=== PATIENT | female | born 1985 | race Caucasian/White ===

== ENCOUNTER 2017-10-12 23:30 | Emergency (ER) | payer SELFPAY ==
[2017-10-12 23:39] VITALS: BP 140/81; PULSE 74; TEMP 98.2; BMI 24.2
--- NOTE | 2017-10-13 00:38 | PDOC ---
History of Present Illness - General History Source: Patient Exam Limitations: No Limitations - History of Present Illness Initial Comments: 10/13/17 01:07 The patient is a 31 year old female with no significant PMH of who presents to the emergency department with intermittent itchiness, hives, and tightness of the throat for the past week. The patient denies any contact with new pets, new jewelry, changes in her environment, new foods, or new lotions. The patient denies any known allergies. Denies recent travel. The patient denies chest pain, shortness of breath, headache and dizziness. Denies fever, chills, nausea, vomit, diarrhea and constipation. Denies dysuria, frequency, urgency and hematuria. Allergies: NKA Past surgical history: None reported. Social history: No reported alcohol, drug, or cigarette use. <Nat Kent - Last Filed: 10/13/17 01:19> <Yanni Paredes - Last Filed: 10/13/17 02:58> - General Chief Complaint: Shortness of Breath Stated Complaint: S.O.B Time Seen by Provider: 10/13/17 00:37 Past History <Nat Kent - Last Filed: 10/13/17 01:19> - Past Medical History Asthma: No Cancer: No Cardiac Disorders: No Diabetes: No HTN: No Seizures: No Thyroid Disease: No - Suicide/Smoking/Psychosocial Hx Smoking History: Never smoked Have you smoked in the past 12 months: No Information on smoking cessation initiated: No Hx Alcohol Use: No Drug/Substance Use Hx: No Substance Use Type: None Hx Substance Use Treatment: No <Yanni Paredes - Last Filed: 10/13/17 02:58> - Past Medical History Allergies/Adverse Reactions: Allergies Allergy/AdvReac Type Severity Reaction Status Date / Time No Known Allergies Allergy Verified 01/17/14 11:21 Home Medications: Ambulatory Orders No Home Medications 0 dose .ROUTE UTDICT 01/17/14 Diphenhydramine [Benadryl -] 50 mg PO Q8H PRN #30 capsule 10/13/17 Epinephrine [Epipen 2-Khalif] 0.3 mg IJ ASDIR #1 kit 10/13/17 Ranitidine HCl [Zantac] 150 mg PO DAILY #30 tablet 10/13/17 predniSONE [Deltasone -] 60 mg PO DAILY #12 tablet 10/13/17 Review of Systems - Review of Systems Able to Perform ROS?: Yes Comments:: 10/13/17 01:07 ROS: A complete review of 10 out of 10 review of systems is taken and is negative apart from what is previously mentioned below and in the HPI. <Nat Kent - Last Filed: 10/13/17 01:19> *Physical Exam - Vital Signs Last Vital Signs Temp Pulse Resp BP Pulse Ox 98.2 F 74 19 140/81 100 10/12/17 23:35 10/12/17 23:35 10/12/17 23:35 10/12/17 23:35 10/12/17 23:35 - Physical Exam Comments: 10/13/17 01:05 GENERAL: The patient is in no acute distress. HEAD: Normal with no signs of trauma. EYES: PERRLA, EOMI, sclera anicteric, conjunctiva clear. ENT: Ears normal, nares patent, oropharynx clear without exudates. Moist mucous membranes. Uvula midline. NECK: Normal range of motion, supple without lymphadenopathy, JVD, or masses. LUNGS: Breath sounds equal, clear to auscultation bilaterally. No wheezes, and no crackles. HEART:Regular rate and rhythm, normal S1 and S2 without murmur, rub or gallop. ABDOMEN: Soft, nontender, normoactive bowel sounds. No guarding, no rebound. No masses palpable. EXTREMITIES: Normal range of motion, no edema. No clubbing or cyanosis. No erythema, or tenderness. NEUROLOGICAL: Cranial nerves II through XII grossly intact. Normal speech. No focal neurological deficits. MUSCULOSKELETAL: Back non-tender to palpation, no CVA tenderness SKIN: (+) Urticaria on the abdomen, back, arms. Warm, Dry, normal turgor. <Nat Kent - Last Filed: 10/13/17 01:19> - Vital Signs Last Vital Signs Temp Pulse Resp BP Pulse Ox 98.2 F 74 19 140/81 100 10/12/17 23:35 10/12/17 23:35 10/12/17 23:35 10/12/17 23:35 10/12/17 23:35 <Yanni Paredes - Last Filed: 10/13/17 02:58> ED Treatment Course - LABORATORY CBC & Chemistry Diagram: 10/13/17 01:48 10/13/17 01:48 <Yanni Paredes - Last Filed: 10/13/17 02:58> Medical Decision Making - Medical Decision Making 10/13/17 02:51 Gustavo is otherwise a 31-year-old female presents emergency department with a complaint of urticarial lesions, itchiness 1 week. Patient cannot recall no foods, new medications, supplements. Patient cannot recall changes in soap, lotion, detergent,. No interactions with arthropod. No nausea, vomiting. Patient feels a globus sensation in the throat. Symptoms have been present for 1 week, intermittent. No episodes like this. On examination: Rhythm, Lungs are clear to auscultation, No wheezing noted, no difficulty breathing. Uvula is midline, nonedematous. Multiple urticarial lesions noted on the arms, abdomen, back Differential diagnosis includes but is not limited to: ALLERGIC reaction, hereditary angioedema Will do basic labs. Will give Solu-Medrol. Will give Benadryl. Will give Pepcid. Laboratory Tests 10/13/17 10/13/17 01:48 01:48 WBC 11.2 H D Hgb 13.3 D Hct 40.0 Plt Count 284 D Sodium 137 Potassium 4.0 Chloride 105 Carbon Dioxide 27 BUN 16 Creatinine 0.6 Random Glucose 96 Upon re assessment Erythematous lesions noted No wheezing, uvula midline Will refer to ENT. Clinical impression: Allergic Reaction, initial presentation <Yanni Paredes - Last Filed: 10/13/17 02:58> *DC/Admit/Observation/Transfer - Attestations Scribe Attestion: 10/13/17 01:06 Documentation prepared by Nat Kent, acting as medical center manager for Yanni Paredes MD . <Nat Kent - Last Filed: 10/13/17 01:19> - Discharge Dispostion Admit: No <Yanni Paredes - Last Filed: 10/13/17 02:58> Diagnosis at time of Disposition: Allergic reaction Qualifiers: Encounter type: initial encounter Qualified Code(s): T78.40XA - Allergy, unspecified, initial encounter - Discharge Dispostion Disposition: HOME Condition at time of disposition: Stable - Referrals Referrals: Palmer Jarvis MD [Staff Physician] - - Patient Instructions Printed Discharge Instructions: DI for General Allergic Reactions Additional Instructions: Thank you for coming in to the ER Please take prednisone, zantac as prescribed Benadryl should only be taken if you feel itchy Please use the epi pen ONLY if your throat is closing and you CAN NOT breathe If you use an epi pen, you must come in to the ER Please follow up with the Ground Water Technician - you can call the number in your chart - Post Discharge Activity Forms/Work/School Notes: Back to Work
[2017-10-13] MEDS ORDERED: methylPREDNISolone NA SUCC 125 MG/2 ML VIAL IVPB ONE (01:04)
[2017-10-13] MEDS ORDERED: methylPREDNISolone NA SUCC 125 MG/2 ML VIAL ONE (01:35)
[2017-10-13 02:04] LABS: BASO % 0.3 % (0-2.0); EOS % 1.2 % (0-4.5); HEMOGLOBIN 13.3 GM/dL (10.7-15.3); LYMPH % 16.4 % (8-40); MCH 30.3 pg (25.7-33.7); MCHC 33.2 g/dl (32.0-36.0); MEAN CELL VOLUME 91.2 fl (80-96); MEAN PLT VOLUME 8.3 fl (7.5-11.1); MONO % 4.2 % (3.8-10.2); NEUT % 77.9 % (42.8-82.8); PLATELET COUNT 284 K/MM3 (134-434); RBC 4.39 M/mm3 (3.60-5.2); WHITE BLOOD COUNT 11.2 K/mm3 (4.0-10.0)
[2017-10-13 02:39] LABS: ANION GAP 5 (8-16); BLOOD UREA NITROGEN 16 mg/dL (7-18); CALCIUM 8.8 mg/dL (8.5-10.1); CHLORIDE 105 mmol/L (98-107); CO2 27 mmol/L (21-32); CREATININE 0.6 mg/dL (0.55-1.02); GLUCOSE,RANDOM 96 mg/dL (74-106); SODIUM 137 mmol/L (136-145)
== END 2017-10-13 03:19 | disposition home or self-care (01) ==
LOC: JER 23:30
PROC: 3E033GC Introduction of Other Therapeutic Substance into Peripheral Vein, Percutaneous Approach (ICD-10-PCS; principal; 2017-10-12)
PROC: 3E0333Z Introduction of Anti-inflammatory into Peripheral Vein, Percutaneous Approach (ICD-10-PCS; 2017-10-12)
DX: L50.9 Urticaria, unspecified (principal); T78.40XA Allergy, unspecified, initial encounter
CPT/HCPCS: 36415; 80048; 85025; 99282-25